=== PATIENT | male | born 1960 | race African-American/Black ===

== ENCOUNTER 2024-04-07 14:55 | Emergency (ER) | payer OTHER ==
[2024-04-07 15:00] VITALS: BP 127/88; PULSE 84; RESP 16; TEMP 98.5; BMI 34.0
[2024-04-07] MEDS ORDERED: IBUPROFEN 600 MG TABLET (FP) PO ONE (17:22)
[2024-04-07] MEDS ORDERED: ACETAMINOPHEN 500 MG TABLET (FP) ONE (17:23)
[2024-04-07] MEDS: ACETAMINOPHEN 500 MG TABLET (FP) PO ONE (17:24)
[2024-04-07] MEDS: IBUPROFEN 600 MG TABLET (FP) PO ONE (17:24)
== END 2024-04-07 17:34 | disposition home or self-care (01) ==
LOC: JER 14:55 → JERFT 14:55
DX: M17.12 Unilateral primary osteoarthritis, left knee (principal); M25.462 Effusion, left knee
CPT/HCPCS: 73560-TC-LT-FY; 99283-25